=== PATIENT | female | born 1985 | race Caucasian/White ===

== ENCOUNTER → 2020-07-04 08:40 | Outpatient (BNVA) | payer OTHER, SELFPAY | PROVIDERS: PCP Internal Medicine; Referring Provider Internal Medicine; Visit Provider Physician Assistant | DX: E66.3 Overweight (principal); Z68.29 Body mass index [BMI] 29.0-29.9, adult; Z98.84 Bariatric surgery status; Z71.3 Dietary counseling and surveillance | CPT/HCPCS: 99214 ==

== ENCOUNTER → 2020-08-02 08:20 | Outpatient (BNVA) | payer OTHER, SELFPAY | PROVIDERS: Visit Provider Dietitian, Registered | DX: Z76.89 Persons encountering health services in other specified circumstances (principal) ==

== ENCOUNTER → 2020-09-01 08:21 | Outpatient (BNVA) | payer OTHER, SELFPAY | PROVIDERS: Visit Provider Surgery | DX: Z76.89 Persons encountering health services in other specified circumstances (principal) ==

== ENCOUNTER → 2020-10-04 10:31 | Outpatient (BNVA) | payer OTHER, SELFPAY | PROVIDERS: Visit Provider Dietitian, Registered ==

== ENCOUNTER → 2020-12-02 11:08 | Outpatient (BNVA) | payer OTHER, SELFPAY | PROVIDERS: Visit Provider Surgery | DX: E66.3 Overweight (principal); K91.2 Postsurgical malabsorption, not elsewhere classified; Z90.3 Acquired absence of stomach [part of]; Z98.84 Bariatric surgery status; Z68.27 Body mass index [BMI] 27.0-27.9, adult | CPT/HCPCS: 99212 ==

== ENCOUNTER → 2021-04-25 15:06 | Outpatient (BNVA) | payer OTHER, SELFPAY | PROVIDERS: Visit Provider Surgery | DX: E66.3 Overweight (principal); K91.2 Postsurgical malabsorption, not elsewhere classified; Z90.3 Acquired absence of stomach [part of]; Z68.27 Body mass index [BMI] 27.0-27.9, adult; Z98.84 Bariatric surgery status | CPT/HCPCS: 99212 ==

== ENCOUNTER 2021-05-10 09:54 | Outpatient (REF) | payer OTHER, SELFPAY ==
[2021-05-10 10:49] LABS: MANUAL DIFF FLAG NO
[2021-05-10 10:54] LABS: Basophils Percent Auto 0.5 % (0-2); Eosinophils Percent Auto 0.7 % (0-4); Hemoglobin 8.5 g/dl (12.0-16.0); Imm Gran Abs Auto 0.01 X10*3/uL (0.00-0.03); Imm Gran Pct Auto 0.2 % (0.0-0.4); Lymphocytes Absolute Auto 2.1 X10*3/uL (1.2-4.9); Lymphocytes Percent Auto 50.7 % (20-40); Mean Corpuscular HGB Conc 31.5 g/dl (31.0-35.0); Mean Corpuscular Hemoglobin 27.1 pg (27.0-33.0); Monocytes Absolute Auto 0.2 X10*3/uL (0.1-1.2); Monocytes Percent Auto 3.9 % (2-11); Neutrophils Absolute Auto 1.8 X10*3/uL (2.0-8.3); Platelet Count 298 X10*3/uL (160-400); Red Blood Count 3.14 X10*6/uL (4.20-5.50); Red Cell Distribution Width 13.2 % (11.0-16.0); White Blood Count 4.1 X10*3/uL (4.8-10.8)
[2021-05-10 11:29] LABS: Estimated Average Glucose 103 mg/dL; Hemoglobin A1c % 5.2 %
[2021-05-10 11:41] LABS: Alanine Aminotransferase 6 U/L (0-31); Albumin Level 3.9 g/dL (3.5-5.0); Alkaline Phosphatase 52 U/L (39-117); Anion Gap 10 (12-20); Aspartate Amino Transferase 12 U/L (5-31); Bilirubin Total 0.4 mg/dL (0.0-1.0); Blood Urea Nitrogen 10 mg/dL (9-16); C Reactive Protein 0.08 mg/dL (< or = 0.50); Calcium 9.5 mg/dL (8.4-10.2); Carbon Dioxide 24 mmol/L (22-29); Chloride 108 mmol/L (96-108); Cholesterol 210 mg/dL; Estimated Glomerular Filt Rate > 60; Glucose Fasting 87 mg/dL (60-99); HDL Cholesterol 77 mg/dL; Iron 18 mcg/dL (30-160); LDL Cholesterol Calculated 126 mg/dl; Percent Iron Saturation 4 % (15-50); Potassium 4.2 mmol/L (3.3-5.1); Sodium 138 mmol/L (135-145); Total Iron Binding Capacity 492 mcg/dL (228-428); Total Protein 6.4 g/dL (6.5-8.0); Triglycerides 39 mg/dL; Unsaturated Iron Binding 474 ug/dL
[2021-05-10 11:57] LABS: Vitamin D 25-OH Total 18.2 ng/mL (>30)
[2021-05-10 12:20] LABS: Vitamin B12 230 pg/mL (200-900)
[2021-05-12 17:47] LABS: Zinc 66 mcg/dL (60-130)
[2021-05-14 10:10] LABS: Vitamin B1 6 nmol/L (8-30)
[2021-05-15 17:27] LABS: Vitamin A 41 mcg/dL (38-98)
== END 2021-05-10 09:55 | disposition home or self-care (01) ==
LOC: HO.LAB 09:54
PROVIDERS: PCP Internal Medicine; Visit Provider Surgery
DX: Z01.818 Encounter for other preprocedural examination (principal); K91.2 Postsurgical malabsorption, not elsewhere classified; Z90.3 Acquired absence of stomach [part of]
CPT/HCPCS: 36415; 80053; 80061; 82306; 82607; 83036; 83540; 84425; 84443; 84590; 84630; 85025; 86140

== ENCOUNTER → 2021-08-22 16:04 | Outpatient (BNVA) | payer OTHER, SELFPAY | PROVIDERS: PCP Internal Medicine; Visit Provider Dietitian, Registered | DX: E66.3 Overweight (principal); Z68.27 Body mass index [BMI] 27.0-27.9, adult | CPT/HCPCS: 97803 ==

== ENCOUNTER 2023-04-16 15:26 | Outpatient (AMB) | payer OTHER, SELFPAY ==
--- NOTE | 2023-04-16 15:32 | MHC.OFFVISWM ---
Intake VS Expanded 04/16/23 15:33 Height 5 ft 2 in Weight 159 lb 9.6 oz BMI 29.2 BP 119/58 L Blood Pressure Location Rt brachial Blood Pressure Position Sitting Pulse 94 Pulse Source Pulse Oximeter Temp 97.5 F Temperature Source Tympanic Pulse Oximetry 100 Oxygen Delivery Method Room Air Body Fat 48.2 Body Fat Percentage 30.3 Free Fat Mass 48.2 Muscle Mass 105.4 Visceral Mass 5.0 Water Mass 79.6 BMR 1,510 Intake Visit Reasons: (OV) PO LSG 03/02/20 Content Specialist Required: No Allergies No Known Allergies [No Known Allergies*] Allergy (Unverified 04/16/23 15:33) Medication List - Last Reconciled 04/16/23 by GREG Lamb famotidine 20 mg PO BID HPI HPI Comments History of Present Illness Details 37 yo female s/p LSG by Dr Fraga 03/02/20. Last seen 08/22/21. Weight today 159.6 pounds with BMI of 29.2. Weight has been 145-150 pounds. She states she gets reflux daily, improved w famotidine. Does not want to lose any more weight Initial weight:236 Pre op weight: 213.6 Meal plan: RTD premier protein chocolate flavor over 15 minutes chicken cesear salad, 20-30 minutes chicken, pasta w red sauce 64-80 oz water smoking 5 cigarettes daily no etoh Exercise: no gym in 3 months Any post op complications: none RAFAEL: never DM: never HTN: never Hyperlipidemia: never GERD:?0-5 scale ??0 = no symptoms ??1 = symptoms noticeable but not bothersome 2 =symptoms bothersome but not daily ? 3 = symptoms bothersome and daily 4 = symptoms affect daily activities 5 = symptoms are incapacitating, unable to do daily activities ? How bad is the heartburn: 4 ? Heartburn while lying down: 4 ? Heartburn when standing up: 0 ? Heartburn after meals: 3 ? Does heartburn change your diet: 0 ? Does heartburn wake you up from sleep: 0 ? Do you have difficulty swallowin ? Do you have pain with swallowin ? If you take medicine for your reflux, does this affect your daily life: 3 Satisfaction with present condition - satisfied or not satisfied: not satisfied [facility] Medical History Left shoulder pain Morbid obesity Overweight (BMI 25.0-29.9) Surgical History Previous section S/P laparoscopic sleeve gastrectomy Family History Father History of back surgery Mother No problems noted. Brother No problems noted. Sister No problems noted. Sister No problems noted. Sister No problems noted. Sister No problems noted. Sister No problems noted. Son No problems noted. Daughter No problems noted. Social History Alcohol intake: never Patient Tobacco Use Status: Current someday Tobacco user Cigarettes Per Day: 1 Review of Systems Const All systems reviewed & are unremarkable except as noted in HPI and below Physical Exam Const General: cooperative and no acute distress Orientation/consciousness: patient oriented x3 Resp Effort & Inspection: normal respiratory effort Auscultation: clear to auscultation bilaterally Cardio Rate: regular rate Rhythm: regular rhythm GI Inspection: Yes normal to inspection and Yes incision (well healed) Palpation (GI): Soft to palpation and no masses Neuro General: patient oriented x3 Assessment & Plan Assessment & Plan (1) S/P laparoscopic sleeve gastrectomy: Comment: DOS 03/02/20, Dr. Fraga Code(s): Z98.84 - Bariatric surgery status Plan: check yearly labs shake and 2 meals with 6 forks protein and 6 forks veg each avoid red sauce and pasta stop smoking start bariatric fusion MVI and jono+D slow down drinkning and eating RTC 4 months Orders: Orders Vitamin B12 and Folate Today E51.9 - Thiamine deficiency, unspecified, E55.9 - Vitamin D deficiency, unspecified, E61.1 - Iron deficiency, Z98.84 - Bariatric surgery status Comprehensive Met. Panel Today E51.9 - Thiamine deficiency, unspecified, E55.9 - Vitamin D deficiency, unspecified, E61.1 - Iron deficiency, Z98.84 - Bariatric surgery status C Reactive Protein Today E51.9 - Thiamine deficiency, unspecified, E55.9 - Vitamin D deficiency, unspecified, E61.1 - Iron deficiency, Z98.84 - Bariatric surgery status Ferritin Today E51.9 - Thiamine deficiency, unspecified, E55.9 - Vitamin D deficiency, unspecified, E61.1 - Iron deficiency, Z98.84 - Bariatric surgery status Hemoglobin A1c Today E51.9 - Thiamine deficiency, unspecified, E55.9 - Vitamin D deficiency, unspecified, E61.1 - Iron deficiency, Z98.84 - Bariatric surgery status Insulin Today E51.9 - Thiamine deficiency, unspecified, E55.9 - Vitamin D deficiency, unspecified, E61.1 - Iron deficiency, Z98.84 - Bariatric surgery status IRON PROFILE Today E51.9 - Thiamine deficiency, unspecified, E55.9 - Vitamin D deficiency, unspecified, E61.1 - Iron deficiency, Z98.84 - Bariatric surgery status Lipid Panel Today E51.9 - Thiamine deficiency, unspecified, E55.9 - Vitamin D deficiency, unspecified, E61.1 - Iron deficiency, Z98.84 - Bariatric surgery status PTHI Today E51.9 - Thiamine deficiency, unspecified, E55.9 - Vitamin D deficiency, unspecified, E61.1 - Iron deficiency, Z98.84 - Bariatric surgery status TSH reflex Free T4 Today E51.9 - Thiamine deficiency, unspecified, E55.9 - Vitamin D deficiency, unspecified, E61.1 - Iron deficiency, Z98.84 - Bariatric surgery status Vitamin A Today E51.9 - Thiamine deficiency, unspecified, E55.9 - Vitamin D deficiency, unspecified, E61.1 - Iron deficiency, Z98.84 - Bariatric surgery status Vitamin B1 Today E51.9 - Thiamine deficiency, unspecified, E55.9 - Vitamin D deficiency, unspecified, E61.1 - Iron deficiency, Z98.84 - Bariatric surgery status Vitamin D 25-OH Total Today E51.9 - Thiamine deficiency, unspecified, E55.9 - Vitamin D deficiency, unspecified, E61.1 - Iron deficiency, Z98.84 - Bariatric surgery status Zinc Today E51.9 - Thiamine deficiency, unspecified, E55.9 - Vitamin D deficiency, unspecified, E61.1 - Iron deficiency, Z98.84 - Bariatric surgery status Complete Blood Count Auto Diff Today E51.9 - Thiamine deficiency, unspecified, E55.9 - Vitamin D deficiency, unspecified, E61.1 - Iron deficiency, Z98.84 - Bariatric surgery status Coding Level of Care Code Est Pt Level 4 (79045) Diagnoses S/P laparoscopic sleeve gastrectomy Z98.84 Time Spent (min) 45
[2023-04-16 15:33] VITALS: BP 119/58; PULSE 94; TEMP 36.4; O2SAT 100; BMI 29.2
== END 2023-04-16 16:11 | disposition home or self-care (01) ==
PROVIDERS: PCP Internal Medicine; Visit Provider Physician Assistant Surgical
DX: E66.3 Overweight (principal); Z68.29 Body mass index [BMI] 29.0-29.9, adult; Z90.3 Acquired absence of stomach [part of]; Z98.84 Bariatric surgery status
CPT/HCPCS: 99214

== ENCOUNTER → 2023-04-16 15:26 | Outpatient (BNVA) | payer OTHER, SELFPAY | PROVIDERS: PCP Internal Medicine; Visit Provider Physician Assistant Surgical | DX: Z98.84 Bariatric surgery status (principal) | CPT/HCPCS: 99212 ==